=== PATIENT | male | born 1985 | race African-American/Black ===

== ENCOUNTER 2023-07-27 17:37 | Emergency (ER) | payer SELFPAY ==
[~2023-07-27] VITALS: Ht 177.8 cm; Wt 118.0 kg
[2023-07-27 17:41] VITALS: BP 138/71; PULSE 87; RESP 16; TEMP 98.4; O2SAT 100
== END 2023-07-27 17:50 | disposition left against medical advice (07) ==
LOC: ER 17:37
DX: S90.521A Blister (nonthermal), right ankle, initial encounter (principal); X58.XXXA Exposure to other specified factors, initial encounter; Y93.89 Activity, other specified; Y92.89 Other specified places as the place of occurrence of the external cause; Y99.8 Other external cause status; Z53.21 Procedure and treatment not carried out due to patient leaving prior to being seen by health care provider
CPT/HCPCS: 99281; 99283

== ENCOUNTER 2023-07-27 18:00 | Emergency (ER) | payer SELFPAY ==
[~2023-07-27] VITALS: Ht 175.3 cm; Wt 113.4 kg
[2023-07-27 18:08] VITALS: BP 114/71; TEMP 98.4; O2SAT 97
[2023-07-27 18:52] VITALS: PULSE 87; RESP 18
== END 2023-07-27 18:53 | disposition home or self-care (01) ==
LOC: ER 18:00
DX: S90.521A Blister (nonthermal), right ankle, initial encounter (principal); X58.XXXA Exposure to other specified factors, initial encounter; Y93.89 Activity, other specified; Y92.89 Other specified places as the place of occurrence of the external cause; Y99.8 Other external cause status
CPT/HCPCS: 99281